=== PATIENT | female | born 1990 | race Caucasian/White ===

== ENCOUNTER 2020-02-23 16:58 | Emergency (ER) | payer MEDICAID, SELFPAY ==
[2020-02-23 17:32] VITALS: BP 115/65; PULSE 88; RESP 20; TEMP 36.8; O2SAT 97
--- NOTE | 2020-02-23 17:34 | ED.GENADULT ---
HPI - General Adult General Chief complaint: Urogenital-Female Stated complaint: Urogenital-female Time Seen by Provider: 02/23/20 17:34 Source: patient Mode of arrival: ambulatory Limitations: no limitations History of Present Illness HPI narrative: 30-year-old female patient [facility] with complaints of urinary symptoms x3 days. Patient states it started off with some pressure, urgency and frequency and now has developed into a burning with urination. Patient states she actually could not make it to the bathroom when she was at a restaurant earlier today which is what brought her in. Denies any fevers, nausea, vomiting or diarrhea. Denies any or breast-feeding. Patient states she has mild low back pain. Related Data Home Medications Medication Instructions Recorded Confirmed levonorgestrel [Mirena] 1 device INTRAUTERINE ONCE 08/10/19 02/23/20 Allergies Allergy/AdvReac Type Severity Reaction Status Date / Time copper Allergy Intermediate HIVES Verified 02/23/20 17:40 Review of Systems Review of Systems: Narrative: CONSTITUTIONAL: Denies fever, chills, or sweats. EYES: Denies visual changes, redness, or discharge. ENT: Denies rhinorrhea, congestion, sore throat, or otalgia. CARDIOVASCULAR: Denies chest pain, palpitations, or edema. RESPIRATORY: Denies cough or dyspnea. GASTROINTESTINAL: Denies abdominal pain, nausea, vomiting, or diarrhea. GENITOURINARY: Denies dysuria or hematuria. Positive pain with urination, urgency and frequency x3 days SKIN: Denies rash or itching. MUSCULOSKELETAL: Denies back pain, joint pain, or myalgia. NEUROLOGIC: Denies headache, numbness, or weakness. PSYCHIATRIC: Denies anxiety or depression. PMFSH Family History Family History Father Hypertension Mother Family history of diabetes mellitus in first degree relative Social History Social History Alcohol intake: never Comments At the time of my signature I agree with nursing past medical history, surgical, social, and family history. There is no relevant family history pertinent to the presenting complaint. Exam Narrative: Exam Narrative: GENERAL: Well-appearing, well-nourished, and in no acute distress. HEAD: Normocephalic, atraumatic. EYES: PERRLA and EOMI. ENT: Nares clear, no rhinorrhea or epistaxis. Mucous membranes moist. NECK: Supple. No lymphadenopathy CHEST: Clear to auscultation. No respiratory distress. HEART: Regular rate and rhythm. No murmur heard. Normal peripheral pulses. ABDOMEN: Soft, nontender, nondistended, normal active bowel sounds. No CVA tenderness on percussion EXTREMITIES: Normal range of motion. No edema. SKIN: Warm, dry, no rash. NEURO: No focal deficits. Alert and oriented x3. Course Vital Signs Vital signs: Vital Signs Temperature 36.8 C 02/23/20 17:32 Pulse Rate 88 02/23/20 17:32 Respiratory Rate 20 02/23/20 17:32 Blood Pressure 115/65 02/23/20 17:32 Pulse Oximetry 97 02/23/20 17:32 Temperature 36.8 C 02/23/20 17:32 Pulse Rate 88 02/23/20 17:32 Respiratory Rate 20 02/23/20 17:32 Blood Pressure 115/65 02/23/20 17:32 Pulse Oximetry 97 02/23/20 17:32 Vital signs reviewed. Medical Decision Making Differential Diagnosis Differential Diagnosis: Differential diagnosis: Uncomplicated lower UTI, uncomplicated UTI, pyelonephritis Discussed with patient that her urine dip is consistent with a urinary tract infection as well as her symptoms. Discussed with patient we will go ahead and start her on antibiotics today and send her urine off for culture. Discussed with patient that if the culture comes back showing that she needs a different type of antibiotic we will call her and place her on antibiotics at that time. Patient verbalized understanding denies any other questions or concerns at this time. Vital Signs Vital Signs:
== END 2020-02-23 17:54 | disposition home or self-care (01) ==
PROVIDERS: Emergency Provider Nurse Practitioner Family
DX: N30.01 Acute cystitis with hematuria (principal)
CPT/HCPCS: 81003; 81025; 87077; 87086; 87088; 87186; 99213; G0463